=== PATIENT | male | born 1995 | race Caucasian/White ===

== ENCOUNTER 2019-03-10 10:36 | Inpatient (IN) | payer OTHER ==
[~2019-03-10] VITALS: Ht 182.9 cm; Wt 85.7 kg
--- NOTE | ~2019-03-10 | PROC ---
[address] [address] PROCEDURE REPORT Name: JOANA DAVIS Room: [address] IN .R.#: [id number] Admission: 03/10/19 Attend Phys: Olivier Roberts MD Discharge: 03/12/19 Date of : 89 Report #: [id number] THIS REPORT FOR: //name// For GI report, please see the Provation report in Perceptive 7 content. By: [id number] Records Staff ROZ /CHRISTO
--- NOTE | ~2019-03-10 | CON ---
[address] [address] CONSULTATION Name: JOANA DAVIS Room: [address] IN .R.#: [id number] Admission: 03/10/19 Attend Phys: Olivier Roberts MD Discharge: Date of : 89 Report #: [id number] THIS REPORT FOR: //name// CC: Olivier Roberts [facility] physician/PCP DATE OF SERVICE: 03/11/2019 ADDENDUM CONSULT NO: [id number] The patient with history of alcohol abuse and dependence, who started having nausea and vomiting and epigastric pain. There is report of one episode of hematemesis. This may be either secondary to severe esophagitis that may be chronic and due to alcohol abuse and dependence or Laura-Jones tear. There is no evidence or concern for [place]. We will consider performing the EGD. Since the patient ate today, we will defer that for tomorrow. Meanwhile, we will continue Protonix and monitor hemoglobin. By: [id number] Gallardo MD /nt
--- NOTE | ~2019-03-10 | CON ---
[address] [address] CONSULTATION Name: JOANA DAVIS Room: [address] IN .R.#: [id number] Admission: 03/10/19 Attend Phys: Olivier Roberts MD Discharge: Date of : [birth year] Report #: [id number] THIS REPORT FOR: //name// CC: Olivier Roberts [facility] physician/PCP NEPHROLOGY CONSULTATION CONSULTING PHYSICIAN: Olivier Roberts M.D. REASON FOR CONSULTATION: Acute kidney injury. HISTORY OF PRESENT ILLNESS: A 24-year-old gentleman with no pre-existing history of kidney disease, who was admitted with nausea, vomiting and hematemesis. He is being seen by GI and endoscopy is planned. His nausea and vomiting are better. He was taking some ibuprofen in the last few days as he did have some dental work done recently, but otherwise, he does not regularly take NSAIDs. He denies any diarrhea, has no other complaints and otherwise feeling well. REVIEW OF SYSTEMS: Constitutional, psych, heme, eyes, ENT, respiratory, cardiac, GI, and endocrine all negative, except as documented above. PAST MEDICAL HISTORY: ADHD. SOCIAL HISTORY: No tobacco. Positive marijuana. Positive alcohol, 2-3 beers. FAMILY HISTORY: No known history of kidney disease. CURRENT MEDICATIONS: Reviewed. PHYSICAL EXAMINATION: VITAL SIGNS: Blood pressure is 113/50, pulse 56, respirations 17 and temperature 36.8. GENERAL: No acute distress. EYES: Open. EARS: Externally normal. NECK: Supple. CARDIOVASCULAR: Regular rate. LUNGS: No crackles. ABDOMEN: Soft. MUSCULOSKELETAL: Nontender. PSYCHIATRIC: Awake, alert. LABORATORY DATA: White cell count 6.3, hemoglobin 13.6 and platelets 200,000. Sodium 141, potassium 4.1, chloride 106, bicarbonate 29, BUN 14, creatinine 1.5, glucose 104 and calcium 8.6. [place] [address] CONSULTATION Name: JOANA DAVIS Room: [address] IN [facility]#: [id number] Admission: 03/10/19 Attend Phys: Olivier Roberts MD Discharge: Date of : 96 Report #: [id number] ASSESSMENT AND PLAN: 1. Acute kidney injury, with admission creatinine of 1.9. Baseline creatinine unknown, but no known history of kidney disease. This is in the setting of hematemesis and ibuprofen use. U/A noted. CK was okay. Kidney ultrasound showed some increased echogenicity. 2. Abnormal kidney ultrasound with increased renal echogenicity. 3. Positive urine drug screen for marijuana. PLAN: Continue IV fluids. Renal function improving. He did have increased echogenicity on his kidney ultrasound. We will check HIV screen. Check labs again in the a.m. Avoid NSAIDs. Thank you for requesting my opinion in the care and management of this patient. By: [id number] [id number] Marlow MD /obi
--- NOTE | ~2019-03-10 | CON ---
[address] [address] CONSULTATION Name: JOANA DAVIS Room: [address] IN .R.#: [id number] Admission: 03/10/19 Attend Phys: Olivier Roberts MD Discharge: Date of : 89 Report #: [id number] THIS REPORT FOR: //name// CC: Olivier Roberts [facility] physician/PCP DICTATED BY: Annie West [facility] DATE OF SERVICE: 03/11/2019 The patient does not currently have a PCP. Please note at the time of this dictation, the patient was seen and physically examined by myself. HISTORY OF PRESENT ILLNESS: This is a 24-year-old male who states that on Thursday, he started noticing some abdominal discomfort. He had a little bit of nausea, but no vomiting. He has been taking antibiotics for an infected tooth, which was hurting, so he took some ibuprofen along with drinking some alcohol with all of that. Later on that day, his symptoms seemed to progressively get worse, so he went over to his neighbor's house who was smoking marijuana and he tried some of that to see if it would help. It did not, it made things worse, which he states he does not typically do that ever. In asking the patient more thoroughly regarding his alcohol consumption. He states he will drink a fifth of whiskey usually on the weekend. He will have alcohol 3 to 4 times during the week in considerable smaller amounts, but denies any tobacco use or any other illegal drug use. The patient states on Thursday evening, his symptoms progressively got worse, that his pain was worse around his periumbilical area. He started vomiting, more of it was bile and at the very end of his vomiting prior to being admitted yesterday he had a large amount of bright red blood that was noted. He is continuing to have nausea, but he has not had any further vomiting since he has been here. He still is complaining of a little bit of nausea and Zofran will help with that. He does have improvement in his abdominal discomfort, but it is still present. The patient states that his bowels move a couple of times a day, soft and formed, after the contrast though his bowels have loosened up and he has not noticed any bright red blood or any melena. ALLERGIES: HYDROCODONE and ABILIFY. MEDICATIONS FROM HOME: He was taking an antibiotic, a derivative of amoxicillin, otherwise negative. PAST MEDICAL HISTORY: ADHD. PAST SURGICAL HISTORY: [place] [address] CONSULTATION Name: JOANA DAVIS Charis Room: [address]#: [id number] Admission: 03/10/19 Attend Phys: Olivier Roberts MD Discharge: Date of : 89 Report #: [id number] FAMILY HISTORY: Maternal grandmother, colon cancer. SOCIAL HISTORY: Alcohol use, a fifth on the weekends and 3-4 times during the week of less consumption. He does admit to marijuana on Thursday. He denies any tobacco use or any other illegal drug use. REVIEW OF SYSTEMS: Twelve-point review of systems is essentially negative except what is mentioned in the HPI. PHYSICAL EXAMINATION: VITAL SIGNS: Temperature 36.8, pulse 56, respirations 17, blood pressure 113/50. HEART: Regular rate and rhythm. LUNGS: Clear. ABDOMEN: Soft, positive bowel sounds in all 4 quadrants with some slight epigastric tenderness noted to palpation. LABORATORY DATA: Hemoglobin on admission was 15.6, he dropped down to 13.6; white count is 6.3; platelets 200. GFR is 58. PT was 10.7, INR was 1. Initially on admission, his GFR was only 44 and it has come up to 58 with hydration. [place] screen was negative. The rest of his drug screen was negative except for the THC. CT of the abdomen and pelvis showed bilateral renal striated lymphograms and perinephrotic edema, possible nephritis with an infection, mild urinary bladder wall thickening, but no GI abnormality noted. IMPRESSION: 1. Hematemesis. 2. Nausea. 3. Abdominal pain, epigastric, improving. 4. Alcohol abuse. 5. Family history of colon cancer, maternal grandmother in her 60s. PLAN: 1. EGD tomorrow. 2. We will advance diet. 3. Discussed need to stop his current alcohol intake, which is excessive given he does have a family history of father being an alcoholic. 4. Further recommendations to be made after the [place] [address] CONSULTATION Name: JOANA DAVIS Room: [address] IN [facility]#: [id number] Admission: 03/10/19 Attend Phys: Olivier Roberts MD Discharge: Date of : 89 Report #: [id number] Thank you for allowing us to participate in this patient's care. Please do not hesitate to call with any questions in regard to this consult. By: 0910 0022Rogerio Gallardo MD /obi
[~2019-03-10 10:36] MED LIST: FLEXERIL PO
[2019-03-10 10:41] VITALS: BP 158/86
[2019-03-10 11:09] LABS: ABSOLUTE EOSINOPHILS 0.1 thou/uL (0.0-0.7); ABSOLUTE LYMPHOCYTES 1.5 thou/uL (0.8-5.3); ABSOLUTE MONOCYTES 0.6 thou/uL (0.0-1.2); ABSOLUTE NEUTROPHILS 5.6 thou/uL (1.6-8.1); BASOPHILS 0.4 %; EOSINOPHILS 1.7 %; HEMATOCRIT 45.4 % (42.0-52.0); HEMOGLOBIN 15.6 gm/dL (14.0-18.0); LYMPHOCYTES 19.3 %; MCH 29.6 pg (26.0-34.0); MCHC 34.3 g/dL (28.0-37.0); MCV 86.5 fL (80.0-100.0); MONOCYTES 7.7 %; MPV 7.5 fl. (7.2-11.1); NUCLEATED RBCS 0 /100WBC; PLATELET COUNT* 226 thou/uL (150-400); POLYS 70.9 %; RBC 5.26 mil/uL (4.50-6.00); RDW-CV 12.4 % (10.5-14.5); WBC 7.8 thou/uL (4.0-11.0)
[2019-03-10 11:18] LABS: ALBUMIN 4.1 g/dL (3.4-5.0); CALCIUM 9.5 mg/dL (8.5-10.1); CREATININE 1.9 mg/dL (0.6-1.3); POTASSIUM 4.4 mmol/L (3.5-5.1); TOTAL BILIRUBIN 0.6 mg/dL (<0.1-1.0); TOTAL PROTEIN 7.9 g/dL (6.4-8.2)
[2019-03-10 11:29] LABS: URINE BILIRUBIN NEGATIVE (Negative); URINE BLOOD TRACE (Negative); URINE CLARITY CLEAR; URINE COLOR YELLOW; URINE GLUCOSE-RANDOM NEGATIVE (Negative); URINE KETONES NEGATIVE (Negative); URINE LEUKOCYTES-REFLEX NEGATIVE (Negative); URINE NITRITE-REFLEX NEGATIVE (Negative); URINE PROTEIN NEGATIVE (Negative); URINE SPECIFIC GRAVITY <= 1.005 (1.005-1.030); URINE UROBILINOGEN 0.2 E.U./dl (0.2-1.0)
[2019-03-10] MEDS ORDERED: CIPRO500 MG PO (13:28)
[2019-03-10] MEDS ORDERED: ZOFRAN ODT4 MG PO (13:28)
[2019-03-10 14:18] LABS: APTT 28.7 Seconds (25.0-31.3); PROTIME 10.7 Seconds (9.20-11.50)
[2019-03-10 14:47] LABS: AMP/METHAMP Negative (Negative); BARBITURATES Negative (Negative); BENZODIAZEPINES Negative (Negative); COCAINE Negative (Negative); METHADONE Negative (Negative); OPIATES Negative (Negative); PCP Negative (Negative); THC POSITIVE (Negative)
[2019-03-10 15:21] VITALS: BP 124/62
[2019-03-10 18:40] VITALS: BP 155/83
[2019-03-11 00:31] VITALS: BP 113/50
[2019-03-11 04:18] LABS: ABSOLUTE EOSINOPHILS 0.2 thou/uL (0.0-0.7); ABSOLUTE LYMPHOCYTES 1.5 thou/uL (0.8-5.3); ABSOLUTE MONOCYTES 0.7 thou/uL (0.0-1.2); ABSOLUTE NEUTROPHILS 3.9 thou/uL (1.6-8.1); BASOPHILS 0.4 %; EOSINOPHILS 2.4 %; HEMATOCRIT 39.6 % (42.0-52.0); LYMPHOCYTES 24.5 %; MCH 29.9 pg (26.0-34.0); MCHC 34.5 g/dL (28.0-37.0); MCV 86.7 fL (80.0-100.0); MONOCYTES 10.5 %; MPV 7.6 fl. (7.2-11.1); NUCLEATED RBCS 0 /100WBC; PLATELET COUNT* 200 thou/uL (150-400); POLYS 62.2 %; RBC 4.56 mil/uL (4.50-6.00); RDW-CV 12.3 % (10.5-14.5); WBC 6.3 thou/uL (4.0-11.0)
[2019-03-11 04:24] LABS: CALCIUM 8.6 mg/dL (8.5-10.1); CREATININE 1.5 mg/dL (0.6-1.3); POTASSIUM 4.1 mmol/L (3.5-5.1)
[2019-03-11 04:46] LABS: HEMOGLOBIN 13.6 gm/dL (14.0-18.0)
[2019-03-11 08:00] VITALS: BP 110/77
[2019-03-11 20:20] VITALS: BP 138/79
[2019-03-12 04:19] LABS: ABSOLUTE EOSINOPHILS 0.1 thou/uL (0.0-0.7); ABSOLUTE LYMPHOCYTES 1.6 thou/uL (0.8-5.3); ABSOLUTE MONOCYTES 0.5 thou/uL (0.0-1.2); ABSOLUTE NEUTROPHILS 2.9 thou/uL (1.6-8.1); BASOPHILS 0.3 %; EOSINOPHILS 2.8 %; HEMATOCRIT 39.5 % (42.0-52.0); HEMOGLOBIN 13.7 gm/dL (14.0-18.0); LYMPHOCYTES 31.8 %; MCH 29.8 pg (26.0-34.0); MCHC 34.6 g/dL (28.0-37.0); MCV 86.3 fL (80.0-100.0); MONOCYTES 8.8 %; MPV 7.8 fl. (7.2-11.1); NUCLEATED RBCS 0 /100WBC; PLATELET COUNT* 211 thou/uL (150-400); POLYS 56.3 %; RBC 4.58 mil/uL (4.50-6.00); RDW-CV 12.4 % (10.5-14.5); WBC 5.1 thou/uL (4.0-11.0)
[2019-03-12 04:42] LABS: CALCIUM 9.2 mg/dL (8.5-10.1); CREATININE 1.3 mg/dL (0.6-1.3); POTASSIUM 4.4 mmol/L (3.5-5.1)
[2019-03-12 10:00] VITALS: BP 123/62
[2019-03-12 13:22] VITALS: BP 123/62
[2019-03-12] MEDS ORDERED: TYLENOL EXTRA500 MG PO (13:30)
[2019-03-12] MEDS ORDERED: COLACE100 MG PO (13:31)
[2019-03-12] MEDS ORDERED: MIRALAX17 GM PO (13:31)
[2019-03-12] MEDS ORDERED: PROTONIX40 M1 PO (13:33)
[2019-03-12 14:20] VITALS: BP 123/62
[2019-03-14 13:10] LABS: HIV-1/HIV-2 ANTIBODY Non Reactive (Non Reactive)
--- NOTE | 2019-03-15 16:06 | PATH ---
[address] [address] PATHOLOGY RPT PROCEDURE Name: JOANA MONGE Room: [address] IN .R.#: [id number] Admission: 03/10/19 Date of : 89 Discharge: 03/12/19 Report #: [id number] Path Case #: [id number] [facility] Accession Number: [id number] . 01 Material submitted: . gastrointestinal site - GASTRIC BIOPSY . 01 Clinical history: . Rule out: Gastritis . 02 Diagnosis: Gastric biopsy: - Mild nonspecific chronic gastritis and prominent superficial fresh hemorrhage, negative for Helicobacter pylori organisms and dysplasia. (CASSANDRA:brien; 03/15/2019) . . Special stain: H. pylori immuno QMS/03/15/2019 . 02 Electronically signed: . Hung Chinchilla MD, Pathologist NPI- [id number] . 01 Gross description: . The specimen is received in formalin, labeled "Joana Monge, gastric biopsy, rule out gastritis", are four interiano soft tissue fragments ranging from 0.1 cm up to 0.4 cm in greatest dimension and measuring 0.6 x 0.3 x 0.1 cm in aggregate, entirely submitted in A1. (SWS; 03/14/2019) . . . . . . . SHS/ . 02 Pathologist provided ICD-10: K29.50 . 02 CPT . 886070, E17573 Specimen Comment: A courtesy copy of this report has been sent to Specimen Comment: [phone], . Specimen Comment: Report sent to / DR VU Performed at: [address] [address] PATHOLOGY RPT PROCEDURE Name: JOANA MONGE Room: [address] IN [facility]#: [id number] Admission: 03/10/19 Date of : [birth year] Discharge: 03/12/19 Report #: [id number] Path Case #: [id number] [facility] [address], [place], [place] [id number] MD Andres Ayala MD Phone: [phone] Performed at: [address] [address] [address], [place], [place] [id number] MD Hung Chinchilla MD Phone: [phone]
== END 2019-03-12 13:45 | disposition home or self-care (01) | DRG 377 ==
LOC: M.ERS 10:36 → M.ORTHSURG 13:49 → M.TBA-ER 13:49 → M.ORTHSURG 15:36
PROVIDERS: Internal Medicine Nephrology; Physician Assistant; ADMIT Internal Medicine
PROC: 0DB68ZX Excision of Stomach, Via Natural or Artificial Opening Endoscopic, Diagnostic (ICD-10-PCS; principal; 2019-03-12)
DX: K29.71 Gastritis, unspecified, with bleeding (principal); N17.0 Acute kidney failure with tubular necrosis; K92.0 Hematemesis; N05.9 Unspecified nephritic syndrome with unspecified morphologic changes; F10.20 Alcohol dependence, uncomplicated; F12.90 Cannabis use, unspecified, uncomplicated; E86.0 Dehydration; K21.0 Gastro-esophageal reflux disease with esophagitis; K44.9 Diaphragmatic hernia without obstruction or gangrene; Z88.6 Allergy status to analgesic agent; Z88.8 Allergy status to other drugs, medicaments and biological substances; Z80.0 Family history of malignant neoplasm of digestive organs; Z79.899 Other long term (current) drug therapy

== ENCOUNTER 2019-06-10 05:51 | Emergency (ER) | payer OTHER ==
[~2019-06-10] VITALS: Ht 182.9 cm; Wt 88.5 kg
[~2019-06-10 05:51] MED LIST changes: +CIPRO500 MG PO; +COLACE100 MG PO; +MIRALAX17 GM PO; +PROTONIX40 M1 PO; +TYLENOL EXTRA500 MG PO; +ZOFRAN ODT4 MG PO
[2019-06-10] MEDS ORDERED: UNICOMPLEX M TA1 TA1 PO (06:02)
[2019-06-10] MEDS ORDERED: NORCO 5-325 TA1 EAC1 PO (06:49)
[2019-06-10 07:20] VITALS: BP 130/72
== END 2019-06-10 07:20 | disposition home or self-care (01) ==
LOC: M.ERS 05:51
DX: S63.591A Other specified sprain of right wrist, initial encounter (principal); F90.9 Attention-deficit hyperactivity disorder, unspecified type; Z88.8 Allergy status to other drugs, medicaments and biological substances; W10.8XXA Fall (on) (from) other stairs and steps, initial encounter; Y93.89 Activity, other specified; Y92.89 Other specified places as the place of occurrence of the external cause; Y99.8 Other external cause status